=== PATIENT | female | born 1995 ===

== ENCOUNTER 2019-09-14 16:01 | Inpatient (IN) | payer OTHER ==
[~2019-09-14] VITALS: Ht 165.1 cm; Wt 70.3 kg
[2019-09-14] MEDS ORDERED: PANADOL (16:51)
[2019-09-14] MEDS ORDERED: FLUTICASONE (16:51)
[2019-09-14] MEDS ORDERED: MONTELUKAST (16:52)
[2019-09-14] MEDS ORDERED: OMEPRAZOLE40 MG (16:53)
[2019-09-14] MEDS ORDERED: ZANTAC150 MG (16:54)
[2019-09-14] MEDS ORDERED: MYLAN (16:54)
--- NOTE | 2019-09-14 16:55 | NUR ---
PTE SE RECIBE POR MYCLOPASMA REFIERE PTE Y FAMILIAR.
--- NOTE | 2019-09-14 18:26 | NUR ---
SE RECIBE PACIENTE ALERTA Y ORIENTADA EVALUADA POR EL DR. OLMSTEAD SE ORIENTA A PACIENTE SOBRE TRATAMIENTO MEDICO SE EXTRAEN MUESTRAS DE SURENDRA Y SEA ADMINSITRAN MEDICAMENTOS DANAE ORDEN MEDICA BAJO MEDIDAS ASEPTICAS.
--- NOTE | 2019-09-15 07:05 | NUR ---
SE RECIBE AL PACIENTE DE TURNO ANTERIOR EN NIKOLAS K-6 AL NIVEL MAS BAJO, CON BARRANDAS ELEVADAS Y CABECERA A 45 GRADOS. TIENE UN H/L PATENTE, CATARINO DE EDEMA Y ERITEMA. PACIENTE EN DESCANSO Y CON BUEN PATRON RESPIRATORIO. AL MOMENTO DE LA ENTREGA SE ENCUENTRA SIN COMPANIA DE UN FAMILIAR.
--- NOTE | 2019-09-15 07:12 | NUR ---
SE RECIBE AL PACIENTE EN NIKOLAS #14, ALERTA Y ORIENTADA X3. PACIENTE ACOMPANADA DE FAMILIAR. REFIERE QUE SIENTE DOLOR EN EL EPIGASTRICO Y MAREOS. PACIENTE TIENE UN IV FLUID DE 0.9% NSS DE 1,000 BAJANDO A 125 ML/HR. SE LE NOTIFICA A LA TANYA. EMMANUEL SOBRE LOS SINTOMAS.
--- NOTE | 2019-09-15 13:47 | NUR ---
SE ORIENTA AL PACIENTE SOBRE ADMINICION, MEDICAMENTO A SER ADMINISTRADO Y MUESTRA DE SURENDRA A SER COLECTADA DANAE ORDEN MEDICA. PACIENTE REFIERE ENTENDER. SE PROCEEDE A COLECTAR LA MUESTRA Y ADMINISTRAR EL MEDICAMENTO UTILIZANDO MEDIDAS ASEPTICAS Y MUESTRAS SON ENVIADAS AL LABORATORIO. E
[2019-09-17] MEDS ORDERED: CEFTRIAXONE2 GM IM (07:53)
== END 2019-09-18 17:09 | disposition home or self-care (01) | DRG 866 ==
LOC: ER 16:01 → SURH 09-15 11:28
PROVIDERS: ADMIT Internal Medicine
PROC: 8E0ZXY6 Isolation (ICD-10-PCS; principal; 2019-09-15)
PROC: BW40ZZZ Ultrasonography of Abdomen (ICD-10-PCS; 2019-09-17)
DX: B27.09 Gammaherpesviral mononucleosis with other complications (principal); E86.0 Dehydration; B96.0 Mycoplasma pneumoniae [M. pneumoniae] as the cause of diseases classified elsewhere; J02.0 Streptococcal pharyngitis

== ENCOUNTER 2025-11-11 08:11 | Outpatient (CLI) | payer OTHER ==
[~2025-11-11 08:11] MED LIST: CEFTRIAXONE2 GM IM; FLUTICASONE; MONTELUKAST; MYLAN; OMEPRAZOLE40 MG; PANADOL; ZANTAC150 MG
== END 2025-11-11 08:12 | disposition home or self-care (01) ==
LOC: PRENATAL 08:11
PROVIDERS: ATTEND Obstetrics & Gynecology Maternal & Fetal Medicine
DX: O36.80X0 Pregnancy with inconclusive fetal viability, not applicable or unspecified (principal); O34.81 Maternal care for other abnormalities of pelvic organs, first trimester; Z3A.01 Less than 8 weeks gestation of pregnancy